=== PATIENT | male | born 1955 | race Caucasian/White ===

== ENCOUNTER 2022-11-15 13:39 | Outpatient (CLI) | payer MEDICARE | END 2022-11-15 13:40 | disposition home or self-care (01) | LOC: CSHMRI 13:39 | PROVIDERS: ATTEND Neurological Surgery | DX: M50.30 Other cervical disc degeneration, unspecified cervical region (principal); M25.78 Osteophyte, vertebrae; M50.21 Other cervical disc displacement, high cervical region; M48.02 Spinal stenosis, cervical region | CPT/HCPCS: 72141 ==

== ENCOUNTER 2022-12-29 10:47 | Outpatient (CLI) | payer MEDICARE | END 2022-12-29 10:48 | disposition home or self-care (01) | LOC: CSHULT 10:47 | PROVIDERS: ATTEND Student in an Organized Health Care Education/Training Program | DX: R55 Syncope and collapse (principal) | CPT/HCPCS: 93880 ==

== ENCOUNTER 2023-07-26 13:05 | Outpatient (CLI) | payer MEDICARE | END 2023-07-26 13:06 | disposition home or self-care (01) | LOC: CSHMRI 13:05 | PROVIDERS: ATTEND Family Medicine | DX: M54.14 Radiculopathy, thoracic region (principal); M47.817 Spondylosis without myelopathy or radiculopathy, lumbosacral region | CPT/HCPCS: 72146; 72148 ==